=== PATIENT | female | born 1945 | race Hispanic/Latino ===

== ENCOUNTER 2018-11-17 07:02 | Day surgery (SDC) | payer MEDICARE ==
[2018-11-11 10:16] VITALS: BMI 34.9
[2018-11-17] MEDS ORDERED: Propofol 10 mg/ml Inj (20 ML) ONE (08:39)
[2018-11-17] MEDS ORDERED: ePHEDrine 50 mg/ml Inj ONE (08:49)
[2018-11-17] MEDS ORDERED: Sodium Chloride 0.9% 1,000 ML IV SCH (09:15)
[2018-11-17 11:43] VITALS: PULSE 73; TEMP 98.8
[2018-11-17 11:47] VITALS: BP 112/77; RESP 16; O2SAT 97
== END 2018-11-17 11:30 | disposition home or self-care (01) ==
LOC: ENDO 07:02
PROVIDERS: ATTEND Specialist
DX: Z12.11 Encounter for screening for malignant neoplasm of colon (principal); D12.0 Benign neoplasm of cecum; K57.30 Diverticulosis of large intestine without perforation or abscess without bleeding; K64.8 Other hemorrhoids; Z86.010 Personal history of colon polyps
CPT/HCPCS: 45380; 88305; J2704; J7030

== ENCOUNTER 2018-12-14 10:14 | Outpatient (CLI) | payer MEDICARE | END 2018-12-14 10:15 | disposition home or self-care (01) | LOC: RAD 10:14 ==